=== PATIENT | female | born 1965 | race Caucasian/White ===

== ENCOUNTER → 2021-02-14 | Outpatient (CLI) | payer OTHER ==
[~2021-02-14] MED LIST: ASPI-999 PO; ATOR40TA PO; CLOP75TA28 PO; EST1.25T; METO50TA7 PO; SLEEPING PILL
== END ==
LOC: CARD 09:07
PROVIDERS: ATTEND Nurse Practitioner Family
DX: R06.09 Other forms of dyspnea (principal)
CPT/HCPCS: 93306

== ENCOUNTER → 2021-02-21 | Outpatient (CLI) | payer OTHER ==
[~2021-02-21] MED LIST changes: +REGADENOSON 0.4 MG/5 ML SYR (LEXISCAN) IV ONE
[2021-02-21 09:38] VITALS: BP 136/81
== END ==
LOC: CARD 07:45
PROVIDERS: ATTEND Nurse Practitioner Family
DX: R07.89 Other chest pain (principal)
CPT/HCPCS: 78452; 93017; A9502

== ENCOUNTER → 2022-04-21 | Outpatient (CLI) | payer BC ==
[~2022-04-21] MED LIST changes: -REGADENOSON 0.4 MG/5 ML SYR (LEXISCAN) IV ONE
== END ==
LOC: CARD 09:10
PROVIDERS: ATTEND Internal Medicine Cardiovascular Disease
DX: R00.2 Palpitations (principal)
CPT/HCPCS: 93225; 93226

== ENCOUNTER 2022-06-18 19:08 | Inpatient (IN) | payer BC ==
[~2022-06-18] VITALS: Ht 154.9 cm; Wt 66.4 kg
[2022-06-18] MEDS ORDERED: LACTATED RINGERS 1,000 ML IV ONE (20:00)
[2022-06-18] MEDS ORDERED: ONDANSETRON 4 MG/2 ML (SDV) Z0FRAN IVP ONE (20:00)
[2022-06-18] MEDS ORDERED: methylPREDNISolone 125 MG (Solu-MEDROL) VIAL IVP ONE (20:00)
[2022-06-18] MEDS ORDERED: RT-ALBUTEROL/IPRATROPIUM 3 ML (DUONEB) VIAL INH ONE ×2 (20:00→21:15)
[2022-06-18 20:14] LABS: BASOPHILS % (AUTO) 0 % (0-10); EOSINOPHILS % (AUTO) 0 % (0-10); HEMATOCRIT 38 % (35-52); HEMOGLOBIN 13.4 g/dL (11.5-16.0); LYMPHOCYTES # (AUTO) 0.8 10^3/uL (1.0-4.0); LYMPHOCYTES % (AUTO) 13 % (12-44); MEAN CORPUSCULAR HEMOGLOBIN 31 pg (25-34); MEAN CORPUSCULAR HGB CONC 35 g/dL (32-36); MEAN CORPUSCULAR VOLUME 89 fL (80-99); MEAN PLATELET VOLUME 10.8 fL (9.0-12.2); MONOCYTES # (AUTO) 0.7 10^3/uL (0.0-1.0); MONOCYTES % (AUTO) 10 % (0-12); NEUTROPHILS # (AUTO) 5.1 10^3/uL (1.8-7.8); NEUTROPHILS % (AUTO) 76 % (42-75); PLATELET COUNT 195 10^3/uL (130-400); WHITE BLOOD COUNT 6.7 10^3/uL (4.3-11.0)
[2022-06-18 20:17] LABS: ALBUMIN 3.7 GM/DL (3.2-4.5); BILIRUBIN,TOTAL 0.4 MG/DL (0.1-1.0); CALCIUM 8.2 MG/DL (8.5-10.1); CREATININE SERUM 0.64 MG/DL (0.60-1.30); MAGNESIUM 1.8 MG/DL (1.6-2.4); POTASSIUM 3.8 MMOL/L (3.6-5.0); TOTAL PROTEIN 6.4 GM/DL (6.4-8.2)
--- NOTE | 2022-06-18 20:37 | Diagnostic Imaging Report ---
EXAMINATION: Chest 1 view HISTORY: Cough. Shortness of breath. Hypoxia. COMPARISON: 01/11/2018. FINDINGS: The lung volumes are normal. No focal consolidation is seen. No large pleural effusion or pneumothorax is seen. Stable cardiomegaly with prominence of the central pulmonary vasculature. No acute osseous abnormality is seen. IMPRESSION: 1. Cardiomegaly with central pulmonary vascular congestion. Dictated by: Dictated on workstation # [id number]
[2022-06-18 21:09] LABS: ABG BASE EXCESS 6.4 MMOL/L (-2.5-2.5); ABG OXYGEN SATURATION 97 % (94-100); ABG PCO2 58 MMHG (35-45); ABG PH 7.36 (7.37-7.43); ABG PO2 83 MMHG (79-93); ABG TCO2 33.6 MMOL/L (21.0-31.0)
[2022-06-18 21:11] LABS: ALLENS TEST YES-POS; INSPIRED O2 4L; VENTILATOR NO
--- NOTE | 2022-06-18 21:13 | ED Respiratory ---
General Chief Complaint: Respiratory Problems Stated Complaint: TROUBLE BREATHING,N/V,HALLUCINATIONS Nursing Triage Note: PT AMB TO ED BY POV WITH C/O SOB. PT REPORTS SHE HAS HAD COUGH, CONGESTION, N/V X 2 DAYS, SOB TODAY. DENIES CP. LABORED BREATHING UPON ARRIVAL. Source: patient, family, old records Exam Limitations: no limitations History of Present Illness Date Seen by Provider: Jun 18, 2022 Time Seen by Provider: 19:32 Initial Comments This 57-year-old woman presents to the emergency room with complaints of shortness of breath, cough, and congestion for the past 2 days. On initial assessment she was noted to have oxygen saturation of 70% on room air. This improved to 98% on 4 L. She is wheezing and exhibiting increased respiratory effort on the expiratory phase consistent with COPD exacerbation. She has had decreased oral intake and urine output recently. She denies any vomiting but does feel nauseated. She reports no fevers. She had been seen in Dr. Wong's office and tested negative for COVID-19 and influenza. She does have history of coronary artery disease and COPD. She denies any chest pain. She does continue to smoke. Angiography from 2018 demonstrated occlusion of a small vessel but there was no other notable obstructive disease and no interventions were performed. She is in sinus rhythm on the monitor. She uses inhalers at home but does not use supplemental oxygen at home. Patient and family also noted that she has had some hallucinations recently and has been seeing and talking to people who are not there or are . Patient has insight into these hallucinations. Allergies and Home Medications Allergies Coded Allergies: apple (Unverified Allergy, Unknown, 01/12/18) FROM UNCODED ALLERGIES codeine (Verified Allergy, Unknown, 08/27/08) diphenhydramine (Verified Allergy, Unknown, 08/27/08) morphine (Verified Allergy, Unknown, 08/27/08) penicillin G (Verified Allergy, Unknown, 08/27/08) Patient Home Medication List Home Medication List Reviewed: Yes Aspirin (Aspirin) 81 Mg Tab.chew, 81 MG PO DAILY Prescribed by: RACHEL BAI on 01/13/18900 Atorvastatin Calcium (Lipitor) 40 Mg Tablet, 40 MG PO HS Prescribed by: RACHEL BAI on 01/13/18900 Clopidogrel Bisulfate (Clopidogrel) 75 Mg Tablet, 75 MG PO DAILY Prescribed by: RACHEL BAI on 01/13/18900 Metoprolol Succinate (Metoprolol Succinate) 50 Mg Tab.er.24h, 50 MG PO DAILY Prescribed by: RACHEL BAI on 01/13/18900 [Sleeping Pill] , (Reported) Entered as Reported by: JEROME PORTILLO on 01/11/18 1546 Review of Systems Review of Systems Constitutional: no symptoms reported EENTM: see HPI Respiratory: see HPI Cardiovascular: no symptoms reported; No edema Gastrointestinal: see HPI Genitourinary: see HPI : No Musculoskeletal: no symptoms reported Skin: no symptoms reported Psychiatric/Neurological: No Symptoms Reported Hematologic/Lymphatic: No Symptoms Reported Immunological/Allergic: no symptoms reported Past Xqgxubf-Juobrm-Edxuck Hx Patient Social History Tobacco Use?: Yes Tobacco type used: Cigarettes Smoking Status: Current Everyday Smoker Use of E-Cig and/or Vaping dev: No Substance use?: No Alcohol Use?: No Pt feels they are or have been: No Immunizations Up To Date Influenza Vaccine Up-to-Date: No; Not Current First/Initial COVID19 Vaccinat: 2020 Second COVID19 Vaccination Rajesh: 2020 Third COVID19 Vaccination Date: YES Seasonal Allergies Seasonal Allergies: No Past Medical History Surgery/Hospitalization HX: COPD, HTN, CAD HYST, APPE Surgeries: Yes (HYSTERECTOMY-3YRS AGO, TUBES TIED IN 1987) Appendectomy, Cardiac (Angiography 2017 with no intervention), Hysterectomy Respiratory: Yes COPD Cardiac: Yes Coronary Artery Disease, Heart Attack (NSTEMI 2017) Neurological: No : No Reproductive Disorders: Yes Sexually Transmitted Disease: No Genitourinary: No Gastrointestinal: No Musculoskeletal: No Endocrine: No HEENT: No Cancer: No Psychosocial: No Integumentary: No Blood Disorders: No Physical Exam Vital Signs - First Documented Capillary Refill : Height: 5'2.00" Weight: 172lbs. 4.0oz. 78.481031wy; 27.00 BMI Method:Stated General Appearance: WD/WN, mild distress HEENT: PERRL/EOMI, normal ENT inspection Neck: normal inspection, other (No JVD) Respiratory: accessory muscle use; No crackles; wheezing, other (Mild rhonchi or rub in the right lower chest. 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, no motor/sensory deficits, alert, normal mood/affect, oriented x 3 Skin: normal color, warm/dry Progress/Results/Core Measures Suspected Sepsis SIRS Temperature: Pulse: 75 Respiratory Rate: 42 Laboratory Tests 06/18/22 19:45: White Blood Count 6.7 Blood Pressure 135 /71 Mean: 92 Laboratory Tests 06/18/22 19:45: Creatinine 0.64, Platelet Count 195, Total Bilirubin 0.4 Results/Orders Lab Results Laboratory Tests Test 06/18/22 19:45 06/18/22 19:50 06/18/22 21:00 Range/Units White Blood Count 6.7 4.3-11.0 10^3/uL Red Blood Count 4.28 3.80-5.11 10^6/uL Hemoglobin 13.4 11.5-16.0 g/dL Hematocrit 38 35-52 % Mean Corpuscular Volume 89 80-99 fL Mean Corpuscular Hemoglobin 31 25-34 pg Mean Corpuscular Hemoglobin Concent 35 32-36 g/dL Red Cell Distribution Width 12.5 10.0-14.5 % Platelet Count 195 130-400 10^3/uL Mean Platelet Volume 10.8 9.0-12.2 fL Immature Granulocyte % (Auto) 1 % Neutrophils (%) (Auto) 76 H 42-75 % Lymphocytes (%) (Auto) 13 12-44 % Monocytes (%) (Auto) 10 0-12 % Eosinophils (%) (Auto) 0 0-10 % Basophils (%) (Auto) 0 0-10 % Neutrophils # (Auto) 5.1 1.8-7.8 10^3/uL Lymphocytes # (Auto) 0.8 L 1.0-4.0 10^3/uL Monocytes # (Auto) 0.7 0.0-1.0 10^3/uL Eosinophils # (Auto) 0.0 0.0-0.3 10^3/uL Basophils # (Auto) 0.0 0.0-0.1 10^3/uL Immature Granulocyte # (Auto) 0.1 0.0-0.1 10^3/uL Sodium Level 127 L 135-145 MMOL/L Potassium Level 3.8 3.6-5.0 MMOL/L Chloride Level 90 L 98-107 MMOL/L Carbon Dioxide Level 27 21-32 MMOL/L Anion Gap 10 5-14 MMOL/L Blood Urea Nitrogen 8 7-18 MG/DL Creatinine 0.64 0.60-1.30 MG/DL Estimat Glomerular Filtration Rate 104 BUN/Creatinine Ratio 13 Glucose Level 135 H 70-105 MG/DL Calcium Level 8.2 L 8.5-10.1 MG/DL Corrected Calcium 8.4 L 8.5-10.1 MG/DL Magnesium Level 1.8 1.6-2.4 MG/DL Total Bilirubin 0.4 0.1-1.0 MG/DL Aspartate Amino Transf (AST/SGOT) 24 5-34 U/L Alanine Aminotransferase (ALT/SGPT) 23 0-55 U/L Alkaline Phosphatase 65 40-136 U/L C-Reactive Protein High Sensitivity 2.56 H 0.00-0.50 MG/DL B-Type Natriuretic Peptide 77.0 <100.0 PG/ML Total Protein 6.4 6.4-8.2 GM/DL Albumin 3.7 3.2-4.5 GM/DL Influenza Type A (RT-PCR) Detected H Not Detecte Influenza Type B (RT-PCR) Not Detected Not Detecte SARS-CoV-2 RNA (RT-PCR) Not Detected Not Detecte Blood Gas Puncture Site RIGHT RADIAL Blood Gas Patient Temperature 37.0 Arterial Blood pH 7.36 L 7.37-7.43 Arterial Blood Partial Pressure CO2 58 H 35-45 MMHG Arterial Blood Partial Pressure O2 83 79-93 MMHG Arterial Blood HCO3 32 H 23-27 MMOL/L Arterial Blood Total CO2 33.6 H 21.0-31.0 MMOL/L Arterial Blood Oxygen Saturation 97 94-100 % Arterial Blood Base Excess 6.4 H -2.5-2.5 MMOL/L Martin Test YES-POS Blood Gas Ventilator Setting NO Blood Gas Inspired Oxygen 4L My Orders Orders - DEMIAN MORENO MD Covid 19 Inhouse Test (06/18/22 19:45) Influenza A And B By Pcr (06/18/22 19:45) Cbc With Automated Diff (06/18/22 19:50) Comprehensive Metabolic Panel (06/18/22 19:50) Hs C Reactive Protein (06/18/22 19:50) Magnesium (06/18/22 19:50) Ed Iv/Invasive Line Start (06/18/22 19:50) Lactated Ringers (Lr 1000 Ml Iv Solution (06/18/22 20:00) Methylprednisolone Sod Succ (Solu-Medrol (06/18/22 20:00) Ondansetron Injection (Zofran Injectio (06/18/22 20:00) Albuterol/Ipra Inhalation Soln (Duoneb I (06/18/22 20:00) Svn Small Volume Nebulizer (06/18/22 19:50) Chest 1 View, Ap/Pa Only (06/18/22 19:50) Bnp Cordelia (06/18/22 20:57) Arterial Blood Gas (06/18/22 21:00) Albuterol/Ipra Inhalation Soln (Duoneb I (06/18/22 21:15) Svn Small Volume Nebulizer (06/18/22 21:13) Medications Given in ED Current Medications Medications Dose Ordered Sig/Allison Route Start Time Stop Time Status Last Admin Dose Admin Albuterol/ Ipratropium 3 ml ONCE ONCE INH 06/18/22 20:00 06/18/22 20:01 DC 06/18/22 21:37 3 ML Lactated Ringer's 1,000 ml @ 0 mls/hr Q0M ONCE IV 06/18/22 20:00 06/18/22 20:01 DC 06/18/22 20:04 0 MLS/HR Methylprednisolone Sodium Succinate 125 mg ONCE ONCE IVP 06/18/22 20:00 06/18/22 20:01 DC 06/18/22 20:03 125 MG Ondansetron HCl 8 mg ONCE ONCE IVP 06/18/22 20:00 06/18/22 20:01 DC 06/18/22 20:03 8 MG Vital Signs/I&O 06/18/22 06/18/22 06/18/22 06/18/22 19:15 19:15 20:39 20:45 Temp 37.2 Pulse 75 Resp 42 B/P (MAP) 135/71 (92) Pulse Ox 98 94 87 O2 Delivery Nasal Cannula Room Air Nasal Cannula Nasal Cannula O2 Flow Rate 6.00 4.00 4.00 Capillary Refill : Blood Pressure Mean: 92 Progress Note #1: Time: 21:18 Progress Note Patient was treated with Zofran, 2 puffs of her inhaler, and Solu-Medrol. After COVID swab was found to be negative, she was also given a DuoNeb treatment. She still has wheezing and increased work of breathing in the expiratory phase. A second DuoNeb treatment will be administered. A liter of IV fluid was administered. However, x-ray later showed possible congestive failure changes. If BNP is elevated, we will consider administering diuretics. Patient does test positive for influenza A. Tamiflu will be started since we are about 48 hours into the illness. Patient is agreeable to admission. CODE STATUS was discussed, and she requests full code. Progress Note #2: Time: 21:45 Progress Note Patient received a second DuoNeb treatment. Respiratory therapy reports she is still wheezy after that. A prolonged albuterol treatment with 12.5 mg of albuterol has been ordered. BNP was normal suggesting heart failure is not a component of her respiratory syndrome. Diagnostic Imaging Diagonstic Imaging: Xray Plain Films/CT/US/NM/MRI: chest Comments NAME: CONCETTA ÁLVAREZ [employer] REC#: [id number] PT STATUS: REG ER : 1965 PHYSICIAN: DEMIAN MORENO MD ADMIT DATE: 06/18/22/ER Signed Date of Exam:06/18/22 CHEST 1 VIEW, AP/PA ONLY EXAMINATION: Chest 1 view HISTORY: Cough. Shortness of breath. Hypoxia. COMPARISON: 01/11/2018. FINDINGS: The lung volumes are normal. No focal consolidation is seen. No large pleural effusion or pneumothorax is seen. Stable cardiomegaly with prominence of the central pulmonary vasculature. No acute osseous abnormality is seen. IMPRESSION: 1. Cardiomegaly with central pulmonary vascular congestion. Dictated by: Dictated on workstation # [id number] Dict: 06/18/222035 Trans: 06/18/222039 CVB [id number] Interpreted by: ZIYAD SHIPLEY DO Electronically signed by: ZIYAD SHIPLEY DO 06/18/222039 Departure Communication (Admissions) Time/Spoke to Admitting Phy: 21:21 Dr. Capone Impression Primary Impression: Influenza A Additional Impression: COPD exacerbation Disposition: 09 ADMITTED INPATIENT Condition: Stable Admissions Decision to Admit Reason: Admit from ER (General) Decision to Admit/Date: Jun 18, 2022 Time/Decision to Admit Time: 21:21 Departure-Patient Inst. Referrals: ANITA WONG DO (PCP/Family) Primary Care Physician DEMIAN MORENO MD Jun 18, 2022 21:13
[2022-06-18] MEDS ORDERED: OSELTAMIVIR 75 MG (TAMIFLU) CAPSULE PO ONE (21:30)
[2022-06-18] MEDS ORDERED: RT-ALBUTEROL SULF 2.5 MG/3 ML PRE-MIX VIAL INH STA (21:43)
[2022-06-18 22:11] VITALS: BP 131/61
[2022-06-18 22:21] VITALS: BP 135/71
[2022-06-18] MEDS ORDERED: RT-ALBUTEROL/IPRATROPIUM 3 ML (DUONEB) VIAL INH PRN (22:45)
[2022-06-18] MEDS ORDERED: ONDANSETRON 4 MG/2 ML (SDV) Z0FRAN IV PRN (22:45)
[2022-06-18] MEDS ORDERED: ACETAMINOPHEN 500 MG TAB (TYLENOL) PO PRN (22:45)
[2022-06-19 00:23] VITALS: BP 96/50
[2022-06-19] MEDS: RT-ALBUTEROL/IPRATROPIUM 3 ML (DUONEB) VIAL INH SCH ×6 (01:25→22:03)
[2022-06-19] MEDS: methylPREDNISolone 40 MG/ML (Solu-MEDROL) VIAL IV SCH ×4 (03:21→20:02)
[2022-06-19] MEDS: CATHETER FLUSH 10 ML SYR IVP SCH ×3 (03:21→20:05)
[2022-06-19 04:45] VITALS: BP 112/57
--- NOTE | 2022-06-19 06:59 | History & Physical-Hospitalist ---
History of Present Illness HPI/Chief Complaint Patient is a 57-year-old female with past medical history of hypertension, COPD who presented to the emergency department due to shortness of breath. She reports starting to feel ill about 2 days ago and was seen by her primary care physician. She was tested for COVID and flu at that time both of which were negative. She worsened yesterday prompting her to seek evaluation in the emergency department. She was found to be quite hypoxic into the 70s on room air. Influenza testing this time was positive for flu A. She does report cough as well as nausea and vomiting over the past 2 days but states that those are feeling better. She works at [email or web address] and has been around a lot of people recently with holiday shopping. This morning she states she is feeling much better and breathing easier. Date Seen 06/19/22 Time Seen by a Provider: 06:58 Attending Physician Anita Wong DO PCP Admitting Physician: Jaylen Capone MD Attending Physician: Jaylen Capone MD Referring Physician Date of Admission Jun 18, 2022 at 21:21 Home Medications & Allergies Home Medications Reviewed patient Home Medication Reconciliation performed by pharmacy medication reconciliations fork lift technician and/or nursing. Patients Allergies have been reviewed. Allergies Allergies Coded Allergies apple (Unverified Allergy, Unknown, 01/12/18) FROM UNCODED ALLERGIES codeine (Verified Allergy, Unknown, 08/27/08) diphenhydramine (Verified Allergy, Unknown, 08/27/08) morphine (Verified Allergy, Unknown, 08/27/08) penicillin G (Verified Allergy, Unknown, 08/27/08) Past Hivxtws-Fjflqa-Zohymw Hx Patient Social History Tobacco Use?: Yes Tobacco type used: Cigarettes Smoking Status: Current Everyday Smoker Smokeless Tobacco Frequency: Never a User Use of E-Cig and/or Vaping dev: Yes E-Cig or Vaping type used: Nicotine Use of E-Cig and/or Vaping Lion: Current Someday User Substance use?: No Alcohol Use?: No Pt feels they are or have been: No Immunizations Up To Date First/Initial COVID19 Vaccinat: 2020 Second COVID19 Vaccination Rajesh: 2020 Tetanus Booster (TDap): Unknown Hepatitis A: No Hepatitis B: No Seasonal Allergies Seasonal Allergies: No Current Status Advance Directives: No Communicates: Verbally Primary Language: Italian Preferred Spoken Language: Italian Is interpretation needed?: No Implanted or Applied Medical D: None Past Medical History Surgeries: Appendectomy, Cardiac, Hysterectomy COPD Coronary Artery Disease, Heart Attack Sexually Transmitted Disease: No Blood Disorders: No Review of Systems Constitutional: chills, fever, malaise, weakness EENTM: see HPI Respiratory: cough, short of breath Cardiovascular: No chest pain, No edema, No Hx of Intervention, No palpitations Gastrointestinal: see HPI Genitourinary: no symptoms reported Musculoskeletal: no symptoms reported Skin: no symptoms reported Psychiatric/Neurological: No Symptoms Reported Physical Exam Physical Exam Vital Signs Vital Signs - First Documented 06/18/22 22:21 FiO2 36 Capillary Refill : Height, Weight, BMI Height: 5'2.00" Weight: 172lbs. 4.0oz. 78.097905wo; 27.59 BMI Method:Stated General Appearance: No Apparent Distress, WD/WN, Chronically ill HEENT: PERRL/EOMI, Moist Mucous Membranes Neck: Normal Inspection, Supple Respiratory: No Accessory Muscle Use, No Respiratory Distress, Decreased Breath Sounds Cardiovascular: Regular Rate, Rhythm, No Murmur Gastrointestinal: Normal Bowel Sounds, Non Tender, Soft Extremity: Normal Capillary Refill, No Calf Tenderness, No Pedal Edema Neurologic/Psychiatric: Alert, Oriented x3, Normal Mood/Affect Results Results/Procedures Labs Laboratory Tests 06/18/22 19:45 06/20/22 05:45 Patient resulted labs reviewed. Imaging: Reviewed Imaging Report Assessment/Plan Admission Diagnosis Acute hypoxic respiratory failure Admission Status: Inpatient Order (span 2 midnights) Reason for Inpatient Admission: see below Assessment and Plan Acute hypoxic respiratory failure COPD exacerbation with lower respiratory tract infection Influenza A MAT protocol Tamiflu Wean oxygen to keep sats >90 Continue steroids Doing much better today HTN HLD CAD Continue home meds as able DVT ppx: SCDs and ambulation Diagnosis/Problems Diagnosis/Problems (1) Acute respiratory failure (2) CAD (coronary artery disease) (3) Essential (primary) hypertension (4) Influenza A Status: Acute (5) COPD exacerbation Status: Acute Copy Copies To 1: ANITA WONG KATELYN M MD Jun 19, 2022 06:59
[2022-06-19 07:57] VITALS: BP 104/64
--- NOTE | 2022-06-19 08:33 | Diagnostic Imaging Report ---
CHEST 1 VIEW, AP/PA ONLY Indication: COPD exacerbation Comparison: 06/18/2022 Findings: No focal airspace disease in the visualized lungs. Central hazy opacities have improved. No pleural effusion or pneumothorax. Normal cardiomediastinal silhouette. Impression: 1. No acute cardiopulmonary process by portable radiography. Dictated by: Dictated on workstation # [id number]
[2022-06-19] MEDS ORDERED: AZITHROMYCIN 250 MG TAB (ZITHROMAX) PO SCH (09:00)
[2022-06-19] MEDS: OSELTAMIVIR 75 MG (TAMIFLU) CAPSULE PO SCH ×2 (09:16→20:02)
[2022-06-19] MEDS: CLOPIDOGREL 75 MG (PLAVIX) TABLET PO SCH (09:38)
[2022-06-19] MEDS: ASPIRIN E.C. 81 MG (ECOTRIN) TAB PO SCH (09:38)
[2022-06-19] MEDS ORDERED: ESCI-2 PO (10:35)
[2022-06-19] MEDS ORDERED: ASPI-1238 PO (10:35)
[2022-06-19] MEDS ORDERED: TRAZ-227 PO (10:35)
[2022-06-19] MEDS ORDERED: ACET-2267 PO (10:35)
[2022-06-19] MEDS ORDERED: AZIT250T12 PO (10:35)
[2022-06-19] MEDS ORDERED: ATOR80TA76 PO (10:35)
[2022-06-19] MEDS ORDERED: LISI40TA9 PO (10:35)
[2022-06-19] MEDS ORDERED: BENZ200C51 PO (10:35)
[2022-06-19] MEDS ORDERED: METO200T48 PO (10:35)
[2022-06-19] MEDS ORDERED: ALPR0.254 PO (10:35)
[2022-06-19] MEDS ORDERED: AMLO-251 PO (10:35)
[2022-06-19 11:54] VITALS: BP 100/60
[2022-06-19 15:29] VITALS: BP 102/52
[2022-06-19] MEDS ORDERED: BENZONATATE 100 MG (TESSALON) CAPSULE PO PRN (16:00)
[2022-06-19 19:24] VITALS: BP 100/51
[2022-06-19] MEDS: traZODone 100 MG (DESYREL) TAB PO SCH (20:01)
[2022-06-19] MEDS: ALPRAZolam 0.25 MG (XANAX) TAB PO SCH (20:02)
[2022-06-20] VITALS (7 sets, daily range): BP systolic 96–120; BP diastolic 55–76
[2022-06-20] MEDS: methylPREDNISolone 40 MG/ML (Solu-MEDROL) VIAL IV SCH ×4 (02:40→20:52)
[2022-06-20] MEDS: CATHETER FLUSH 10 ML SYR IVP SCH ×3 (02:41→20:53)
[2022-06-20] MEDS: RT-ALBUTEROL/IPRATROPIUM 3 ML (DUONEB) VIAL INH SCH ×6 (02:42→23:02)
[2022-06-20 06:33] LABS: HEMATOCRIT 39 % (35-52); HEMOGLOBIN 13.4 g/dL (11.5-16.0); MEAN CORPUSCULAR HEMOGLOBIN 31 pg (25-34); MEAN CORPUSCULAR HGB CONC 34 g/dL (32-36); MEAN CORPUSCULAR VOLUME 91 fL (80-99); MEAN PLATELET VOLUME 10.9 fL (9.0-12.2); PLATELET COUNT 207 10^3/uL (130-400); WHITE BLOOD COUNT 4.8 10^3/uL (4.3-11.0)
[2022-06-20 06:55] LABS: CALCIUM 8.8 MG/DL (8.5-10.1); CREATININE SERUM 0.68 MG/DL (0.60-1.30); POTASSIUM 3.9 MMOL/L (3.6-5.0)
[2022-06-20] MEDS ORDERED: NON-FORMULARY MEDICATION 1 EA EA (Escitalopram Oxalate 10 MG) PO SCH (09:00)
[2022-06-20] MEDS: OSELTAMIVIR 75 MG (TAMIFLU) CAPSULE PO SCH ×2 (09:12→20:52)
[2022-06-20] MEDS: ALPRAZolam 0.25 MG (XANAX) TAB PO SCH ×2 (09:37→20:52)
[2022-06-20] MEDS: ASPIRIN E.C. 81 MG (ECOTRIN) TAB PO SCH (09:37)
[2022-06-20] MEDS: meTOprolol SUCCINATE 100 MG (TOPROL XL) TAB PO SCH (09:37)
[2022-06-20] MEDS: lisINopril 40 MG (PRINIVIL) TABLET PO SCH (09:37)
[2022-06-20] MEDS: CLOPIDOGREL 75 MG (PLAVIX) TABLET PO SCH (09:37)
--- NOTE | 2022-06-20 10:56 | Discharge Summary ---
Diagnosis/Chief Complaint Date of Admission Jun 18, 2022 at 9:21 pm Date of Discharge Admission Diagnosis Acute hypoxic respiratory failure Primary Care Peng Loza DO Discharge Diagnosis (1) Acute respiratory failure (2) CAD (coronary artery disease) (3) Essential (primary) hypertension (4) Influenza A Status: Acute (5) COPD exacerbation Status: Acute Discharge Summary Discharge Physical Exam Allergies: Coded Allergies: apple (Unverified Allergy, Unknown, 01/12/18) FROM UNCODED ALLERGIES codeine (Verified Allergy, Unknown, 08/27/08) diphenhydramine (Verified Allergy, Unknown, 08/27/08) morphine (Verified Allergy, Unknown, 08/27/08) penicillin G (Verified Allergy, Unknown, 08/27/08) Vitals & I&Os Vital Signs Date Time Temp Pulse Resp B/P (MAP) Pulse Ox O2 Delivery O2 Flow Rate FiO2 06/21/22 11:08 90 Nasal Cannula 6.00 06/21/22 07:30 36.2 55 18 105/66 (79) 06/18/22 22:21 36 General Appearance: No Apparent Distress, WD/WN Respiratory: Lungs Clear, No Accessory Muscle Use Cardiovascular: Regular Rate, Rhythm, No Murmur Gastrointestinal: Normal Bowel Sounds, Soft Hospital Course Patient was admitted to the hospital secondary to acute hypoxic respiratory failure due to influenza A and a COPD exacerbation. She was treated with Tamiflu and steroids and did very well. She was able to be discharged home in stable improved condition with supplemental oxygen to follow-up with her primary care physician. Labs (last 24 hrs) Patient resulted labs reviewed. Pending Labs Discussion & Recommendations Discharge Planning: >30 minutes discharge planning Discharge Home Medications: Active Scripts Active Prednisone 10 Mg Tab.ds.pk 10 Mg PO DAILY Take 6 tabs(60mg)daily,decrease by 1 tab(10MG)daily. Tamiflu (Oseltamivir Phosphate) 75 Mg Cap 75 Mg PO BID Reported Tylenol Extra Strength (Acetaminophen) 500 Mg Tablet 1,000 Mg PO Q8H PRN Aspirin EC (Aspirin) 81 Mg Tablet.dr 81 Mg PO DAILY Metoprolol Succinate 200 Mg Tab.er.24h 200 Mg PO DAILY Escitalopram Oxalate 10 Mg Tablet 10 Mg PO DAILY Trazodone HCl 100 Mg Tablet 100 Mg PO HS Atorvastatin Calcium 80 Mg Tablet 80 Mg PO HS Amlodipine Besylate 10 Mg Tablet 10 Mg PO DAILY ALPRAZolam 0.25 Mg Tablet 0.25 Mg PO BID Lisinopril 40 Mg Tablet 40 Mg PO DAILY Benzonatate 200 Mg Capsule 200 Mg PO TID PRN Instructions to patient/family Please see electronic discharge instructions given to patient. BASSAM MOSLEY MD Jun 20, 2022 10:56
--- NOTE | 2022-06-20 10:58 | Discharge Inst-Simple/Standard ---
Discharge Inst-Standard Discharge Medications New, Converted or Re-Newed RX: Transmitted to Pharmacy Patient Instructions/Follow Up Plan of Care/Instructions/FU: Please continue to take your medications as written. Please follow up with your primary care doctor to follow up this hospital stay. Activity as Tolerated: Yes Discharge Diet: No Restrictions Return to The Hospital For: Chest pain, shortness of breath, fever, weakness, if you feel you are getting worse. BASSAM MOSLEY MD Jun 20, 2022 10:58 am
[2022-06-20] MEDS ORDERED: RELABEL FOR HOME USE MC SCH (11:00)
[2022-06-20] MEDS ORDERED: PRED10TA22 PO (11:00)
[2022-06-20] MEDS ORDERED: OSLT75C PO (11:00)
[2022-06-20] MEDS ORDERED: OSELTAMIVIR 75 MG (TAMIFLU) CAPSULE PO SCH (12:00)
[2022-06-20] MEDS: traZODone 100 MG (DESYREL) TAB PO SCH (20:53)
[2022-06-21] MEDS: RT-ALBUTEROL/IPRATROPIUM 3 ML (DUONEB) VIAL INH SCH ×6 (03:25→22:42)
[2022-06-21] MEDS: methylPREDNISolone 40 MG/ML (Solu-MEDROL) VIAL IV SCH ×4 (03:52→21:00)
[2022-06-21 03:53] VITALS: BP 110/64
[2022-06-21] MEDS: CATHETER FLUSH 10 ML SYR IVP SCH ×3 (03:53→21:01)
[2022-06-21 07:30] VITALS: BP 105/66
[2022-06-21] MEDS: OSELTAMIVIR 75 MG (TAMIFLU) CAPSULE PO SCH ×2 (08:20→21:00)
[2022-06-21] MEDS: meTOprolol SUCCINATE 100 MG (TOPROL XL) TAB PO SCH (09:23)
[2022-06-21] MEDS: lisINopril 40 MG (PRINIVIL) TABLET PO SCH (09:23)
[2022-06-21] MEDS: CLOPIDOGREL 75 MG (PLAVIX) TABLET PO SCH (09:23)
[2022-06-21] MEDS: ASPIRIN E.C. 81 MG (ECOTRIN) TAB PO SCH (09:23)
[2022-06-21] MEDS: ALPRAZolam 0.25 MG (XANAX) TAB PO SCH ×2 (09:23→21:00)
[2022-06-21 11:21] VITALS: BP 109/69
--- NOTE | 2022-06-21 11:26 | Progress Note - Hospitalist ---
Subjective HPI/CC On Admission Date Seen by Provider: Jun 21, 2022 Patient is a 57-year-old female with past medical history of hypertension, COPD who presented to the emergency department due to shortness of breath. She reports starting to feel ill about 2 days ago and was seen by her primary care physician. She was tested for COVID and flu at that time both of which were negative. She worsened yesterday prompting her to seek evaluation in the emergency department. She was found to be quite hypoxic into the 70s on room air. Influenza testing this time was positive for flu A. She does report cough as well as nausea and vomiting over the past 2 days but states that those are feeling better. She works at [employer] and has been around a lot of people recently with holiday shopping. This morning she states she is feeling much b devi and breathing easier. Subjective/Events-last exam Pt reports feeling well today. No complaints. Up to 6lpm NC. States she took a shower though and was off oxygen for 30m and sats stayed around 93. Currently 90 on 6lpm. Objective Exam Vital Signs Vital Signs Date Time Temp Pulse Resp B/P (MAP) Pulse Ox O2 Delivery O2 Flow Rate FiO2 06/21/22 11:08 90 Nasal Cannula 6.00 06/21/22 07:30 36.2 55 18 105/66 (79) 06/18/22 22:21 36 Capillary Refill : General Appearance: No Apparent Distress, WD/WN Respiratory: Lungs Clear, No Respiratory Distress Cardiovascular: Regular Rate, Rhythm, No Murmur Neurologic/Psychiatric: Alert, Oriented x3 Results/Procedures Lab Patient resulted labs reviewed. Imaging: Reviewed Imaging Report Assessment/Plan Assessment and Plan Assess & Plan/Chief Complaint Acute hypoxic respiratory failure COPD exacerbation with lower respiratory tract infection Influenza A MAT protocol Tamiflu Wean oxygen to keep sats >90- currently on 6lpm Continue steroids Was unable to DC yesterday due to increasing oxygen requirement. HTN HLD CAD Continue home meds as able DVT ppx: SCDs and ambulation Diagnosis/Problems Diagnosis/Problems (1) Acute respiratory failure (2) CAD (coronary artery disease) (3) Essential (primary) hypertension (4) Influenza A Status: Acute (5) COPD exacerbation Status: Acute BASSAM MOSLEY MD Jun 21, 2022 11:25
--- NOTE | 2022-06-21 11:35 | Progress Note - Hospitalist ---
Subjective HPI/CC On Admission Date Seen by Provider: Jun 20, 2022 Patient is a 57-year-old female with past medical history of hypertension, COPD who presented to the emergency department due to shortness of breath. She reports starting to feel ill about 2 days ago and was seen by her primary care physician. She was tested for COVID and flu at that time both of which were negative. She worsened yesterday prompting her to seek evaluation in the emergency department. She was found to be quite hypoxic into the 70s on room air. Influenza testing this time was positive for flu A. She does report cough as well as nausea and vomiting over the past 2 days but states that those are feeling better. She works at [employer] and has been around a lot of people recently with holiday shopping. This morning she states she is feeling much b devi and breathing easier. Subjective/Events-last exam LATE ENTRY NOTE DID NOT DC ON 06/20 Plan was to DC home yesterday and DC summary was done but due to hypoxia patient didn't DC. Reports feeling well but still needing a decent amount of oxygen. I titrated down to 3lpm but went up to 6lpm on oxygen study. Objective Exam Vital Signs Vital Signs Date Time Temp Pulse Resp B/P (MAP) Pulse Ox O2 Delivery O2 Flow Rate FiO2 06/21/22 11:08 90 Nasal Cannula 6.00 06/21/22 07:30 36.2 55 18 105/66 (79) 06/18/22 22:21 36 Capillary Refill : General Appearance: No Apparent Distress, WD/WN Respiratory: Lungs Clear, No Respiratory Distress Cardiovascular: Regular Rate, Rhythm, No Murmur Neurologic/Psychiatric: Alert, Oriented x3 Results/Procedures Lab Patient resulted labs reviewed. Imaging: Reviewed Imaging Report Assessment/Plan Assessment and Plan Assess & Plan/Chief Complaint Acute hypoxic respiratory failure COPD exacerbation with lower respiratory tract infection Influenza A MAT protocol Tamiflu Wean oxygen to keep sats >90 Continue steroids Attempted DC yesterday but failed oxygen study HTN HLD CAD Continue home meds as able DVT ppx: SCDs and ambulation Diagnosis/Problems Diagnosis/Problems (1) Acute respiratory failure (2) CAD (coronary artery disease) (3) Essential (primary) hypertension (4) Influenza A Status: Acute (5) COPD exacerbation Status: Acute BASSAM MOSLEY MD Jun 21, 2022 11:35
[2022-06-21 15:57] VITALS: BP 111/54
[2022-06-21 19:49] VITALS: BP 94/57
[2022-06-21] MEDS: traZODone 100 MG (DESYREL) TAB PO SCH (21:00)
[2022-06-21 23:47] VITALS: BP 101/62
[2022-06-22] MEDS: RT-ALBUTEROL/IPRATROPIUM 3 ML (DUONEB) VIAL INH SCH ×3 (02:14→10:32)
[2022-06-22 04:24] VITALS: BP 101/62
[2022-06-22 04:30] VITALS: BP 104/58
[2022-06-22] MEDS: methylPREDNISolone 40 MG/ML (Solu-MEDROL) VIAL IV SCH ×2 (04:30→08:02)
[2022-06-22] MEDS: CATHETER FLUSH 10 ML SYR IVP SCH (05:56)
[2022-06-22] MEDS: meTOprolol SUCCINATE 100 MG (TOPROL XL) TAB PO SCH (07:51)
[2022-06-22] MEDS: ASPIRIN E.C. 81 MG (ECOTRIN) TAB PO SCH (07:51)
[2022-06-22] MEDS: lisINopril 40 MG (PRINIVIL) TABLET PO SCH (07:52)
[2022-06-22] MEDS: CLOPIDOGREL 75 MG (PLAVIX) TABLET PO SCH (07:52)
[2022-06-22] MEDS: ALPRAZolam 0.25 MG (XANAX) TAB PO SCH (07:58)
[2022-06-22 08:00] VITALS: BP 134/69
[2022-06-22] MEDS: OSELTAMIVIR 75 MG (TAMIFLU) CAPSULE PO SCH (08:02)
[2022-06-22 12:14] VITALS: BP 111/72
[2022-06-22] MEDS ORDERED: RELABEL FOR HOME USE MC SCH (12:15)
[2022-06-22] MEDS ORDERED: OSELTAMIVIR 75 MG (TAMIFLU) CAPSULE PO SCH (12:30)
[2022-06-22 13:52] VITALS: BP 111/72
--- NOTE | 2022-06-22 15:49 | Discharge Summary ---
Discharge Summary Hospital Course Problems/Dx: (1) Acute respiratory failure Status: Acute Qualifiers: Qualified Codes: J96.01 - Acute respiratory failure with hypoxia (2) CAD (coronary artery disease) (3) Essential (primary) hypertension (4) Influenza A Status: Acute (5) COPD exacerbation Status: Acute Hospital Course Date of Admission: Jun 18, 2022 at 21:21 Admission Diagnosis : Acute respiratory failure with hypoxia due to COPD exacerbation and influenza A Family Physician/Provider: Peng Loza DO Date of Discharge: 06/22/22 Discharge Diagnosis: Acute respiratory failure with hypoxia due to COPD exacerbation and influenza A Hospital Course: Mariam Love is a 57 year old female who was admitted with acute respiratory failure with hypoxia. She was found to be influenza A positive. She was treated with Tamiflu. She was also treated for a COPD exacerbation with steroids and breathing treatments. She has likely been chronically hypoxic prior to admission. She was set up with home oxygen 5 L continuously and 6 L with activity. She was discharged home in stable condition. She should follow up with Dr. Loza in about a week. Labs and Pending Lab Test: Home Meds Active Prednisone 10 Mg Tab.ds.pk 10 Mg PO DAILY Take 6 tabs(60mg)daily,decrease by 1 tab(10MG)daily. Tamiflu (Oseltamivir Phosphate) 75 Mg Cap 75 Mg PO BID Reported Tylenol Extra Strength (Acetaminophen) 500 Mg Tablet 1,000 Mg PO Q8H PRN Aspirin EC (Aspirin) 81 Mg Tablet.dr 81 Mg PO DAILY Metoprolol Succinate 200 Mg Tab.er.24h 200 Mg PO DAILY Escitalopram Oxalate 10 Mg Tablet 10 Mg PO DAILY Trazodone HCl 100 Mg Tablet 100 Mg PO HS Atorvastatin Calcium 80 Mg Tablet 80 Mg PO HS Amlodipine Besylate 10 Mg Tablet 10 Mg PO DAILY ALPRAZolam 0.25 Mg Tablet 0.25 Mg PO BID Lisinopril 40 Mg Tablet 40 Mg PO DAILY Benzonatate 200 Mg Capsule 200 Mg PO TID PRN Assessment/Pt Instructions Take medications as prescribed. Follow up with your PCP in about a week. You are being set up with home oxygen. Return with worsening shortness of breath, chest pain, or if you feel like you are getting worse. Discharge Planning: >30 minutes discharge planning Discharge Instructions Discharge Diet: No Restrictions Activity as Tolerated: Yes Discharge Physical Examination Vital Signs Vital Signs Date Time Temp Pulse Resp B/P (MAP) Pulse Ox O2 Delivery O2 Flow Rate FiO2 06/22/22 13:52 36.5 63 18 111/72 93 Nasal Cannula 5.00 06/18/22 22:21 36 General Appearance: No Apparent Distress, WD/WN Respiratory: Lungs Clear, No Respiratory Distress Cardiovascular: Regular Rate, Rhythm, No Murmur Gastrointestinal: Normal Bowel Sounds, Soft Extremity: Normal Inspection, No Pedal Edema Skin: Normal Color, Warm/Dry Neurologic/Psychiatric: Alert, Normal Mood/Affect Allergies: Coded Allergies: apple (Unverified Allergy, Unknown, 01/12/18) FROM UNCODED ALLERGIES codeine (Verified Allergy, Unknown, 08/27/08) diphenhydramine (Verified Allergy, Unknown, 08/27/08) morphine (Verified Allergy, Unknown, 08/27/08) penicillin G (Verified Allergy, Unknown, 08/27/08) Copy Copies To 1: PENG LOZA DO Discharge Summary Date of Admission Jun 18, 2022 at 21:21 Date of Discharge Jun 22, 2022 at 13:52 Discharge Date: Jun 22, 2022 Discharge Time: 13:52 Admission Diagnosis Acute hypoxic respiratory failure Discharge Diagnosis (1) Acute respiratory failure Status: Acute Qualifiers: Qualified Codes: J96.01 - Acute respiratory failure with hypoxia (2) CAD (coronary artery disease) (3) Essential (primary) hypertension (4) Influenza A Status: Acute (5) COPD exacerbation Status: Acute MUMTAZ CHANEL MD Jun 22, 2022 15:44
== END 2022-06-22 13:52 | disposition home or self-care (01) | DRG 193 ==
LOC: EDUNIT# 19:08 → ER 19:10 → 4TH 21:21
PROVIDERS: ADMIT Internal Medicine; ATTEND Internal Medicine
PROC: 5A0935A Assistance with Respiratory Ventilation, Less than 24 Consecutive Hours, High Flow/Velocity Cannula (ICD-10-PCS; principal; 2022-06-22)
DX: J10.1 Influenza due to other identified influenza virus with other respiratory manifestations (principal); J96.01 Acute respiratory failure with hypoxia; J44.1 Chronic obstructive pulmonary disease with (acute) exacerbation; J44.0 Chronic obstructive pulmonary disease with (acute) lower respiratory infection; I25.10 Atherosclerotic heart disease of native coronary artery without angina pectoris; I10 Essential (primary) hypertension; Z20.822 Contact with and (suspected) exposure to COVID-19; E78.5 Hyperlipidemia, unspecified; F17.210 Nicotine dependence, cigarettes, uncomplicated; I25.2 Old myocardial infarction; Z79.82 Long term (current) use of aspirin; Z79.899 Other long term (current) drug therapy; Z88.0 Allergy status to penicillin; Z88.5 Allergy status to narcotic agent
CPT/HCPCS: 36415; 36600; 71045; 80048; 80053; 82805; 83735; 83880; 85025; 85027; 86141; 87636; 94640; 94664; 94760; 94761